=== PATIENT | male | born 1970 | race African-American/Black ===

== ENCOUNTER 2017-09-11 22:33 | Emergency (ER) | payer MEDICAID, OTHER ==
[~2017-09-11] VITALS: Ht 165.1 cm; Wt 54.5 kg
[~2017-09-11 22:33] MED LIST: DIVA500T35 PO; QUET400T PO; SERT50TA12 PO
[2017-09-11 22:58] LABS: BASOPHILS % (AUTO) 0.8 % (0.0-2.0); EOSINOPHILS % (AUTO) 5.3 % (1.0-6.0); HEMATOCRIT 41.7 % (41-53); HEMOGLOBIN 14.8 g/dL (13.5-17.5); LYMPHOCYTES % (AUTO) 28.7 % (22.0-44.0); MEAN CORPUSCULAR HEMOGLOBIN 34.3 pg (26.0-34.0); MEAN CORPUSCULAR HGB CONC 35.4 G/dL (31.0-37.0); MEAN CORPUSCULAR VOLUME 97 fL (80-100); MONOCYTES # (AUTO) 0.7 K/uL (0.1-1.0); MONOCYTES % (AUTO) 9.7 % (2.0-9.0); NEUTROPHILS # (AUTO) 3.8 K/uL (1.8-7.7); NEUTROPHILS % (AUTO) 55.5 % (40.0-70.0); PLATELET COUNT (AUTO) 231 K/uL (150-450); RED CELL DISTRIBUTION WIDTH 13.5 % (11.5-14.5)
[2017-09-11 23:08] LABS: ANION GAP 11 mmol/L (8-16); CALCIUM, TOTAL 8.7 mg/dL (8.8-10.5); CARBON DIOXIDE 27 mmol/L (22-29); CHLORIDE 103 mmol/L (98-107); CREATININE 0.84 mg/dL (0.60-1.30); GLOMERULAR FILTR. RATE CALC > 60 mL/min (>60); GLUCOSE,RANDOM 125 mg/dL (70-110); SODIUM SERUM 141 mmol/L (136-145); UREA NITROGEN, BLOOD 8 mg/dL (7-18)
[2017-09-11 23:14] LABS: ALANINE AMINOTRANSFERASE 60 U/L (12-78); ALBUMIN 3.9 g/dL (3.4-5.0); ALKALINE PHOSPHATASE 129 U/L (46-116); ASPARTATE AMINOTRANSFERASE 70 U/L (15-37); BILIRUBIN,TOTAL 1.3 mg/dL (0.1-1.0)
[2017-09-12] MEDS ORDERED: HALOPERIDOL 5 MG TABLET PO PRN (02:00)
[2017-09-12] MEDS ORDERED: LORazepam 2 MG TABLET PO PRN (02:00)
[2017-09-12] MEDS ORDERED: ZOLPIDEM TARTRATE 10 MG TABLET PO PRN (02:00)
[2017-09-12 03:53] VITALS: BP 123/67
== END 2017-09-12 04:19 | disposition home or self-care (01) ==
LOC: EMS 22:35
DX: F20.9 Schizophrenia, unspecified (principal); F10.10 Alcohol abuse, uncomplicated; F17.210 Nicotine dependence, cigarettes, uncomplicated; Z98.890 Other specified postprocedural states; Z88.6 Allergy status to analgesic agent; Z91.013 Allergy to seafood; Z79.899 Other long term (current) drug therapy
CPT/HCPCS: 36415; 80053; 85025; 99284; G0480

== ENCOUNTER 2018-06-28 22:35 | Emergency (ER) | payer SELFPAY ==
[~2018-06-28] VITALS: Ht 162.6 cm; Wt 72.7 kg
[~2018-06-28 22:35] MED LIST changes: +DIVA-78 PO; -DIVA500T35 PO
[2018-06-29 02:30] VITALS: BP 104/77
[2018-06-29] MEDS ORDERED: KETOROLAC TROMETHAMINE 60 MG/2 ML VIAL IM ONE (02:45)
== END 2018-06-29 02:55 | disposition home or self-care (01) ==
LOC: EMS 22:36
DX: M54.5 Low back pain (principal); G89.11 Acute pain due to trauma; F20.9 Schizophrenia, unspecified; F17.210 Nicotine dependence, cigarettes, uncomplicated; F12.90 Cannabis use, unspecified, uncomplicated; Z88.6 Allergy status to analgesic agent; Z91.011 Allergy to milk products; Z91.013 Allergy to seafood; W10.9XXA Fall (on) (from) unspecified stairs and steps, initial encounter; Y93.89 Activity, other specified; Y92.89 Other specified places as the place of occurrence of the external cause; Y99.8 Other external cause status
CPT/HCPCS: 72100; 72220; 96372; 99283; J1885